=== PATIENT | female | born 1950 | race Caucasian/White ===

== ENCOUNTER 2016-11-02 15:25 | Inpatient (IN) | payer MEDICARE, OTHER ==
[~2016-11-02] VITALS: Ht 162.6 cm; Wt 84.5 kg
[2016-11-02] MEDS ORDERED: ASPIRIN 81 MG TABLET CHEW PO ONE (16:00)
[2016-11-02] MEDS ORDERED: SODIUM CHLORIDE FLUSH 10ML SYR IVF ONE (16:00)
[2016-11-02] MEDS ORDERED: SODIUM CHLORIDE 0.9% 1,000ML IVBOLUS ONE (16:00)
[2016-11-02 16:10] LABS: HEMATOCRIT 32.3 % (34.6-47.8); HEMOGLOBIN 10.4 g/dL (11.7-16.4)
[2016-11-02 16:22] LABS: BLOOD UREA NITROGEN 21 mg/dL (7-18)
[2016-11-02 16:28] LABS: IS PT STATUS REG ER OR PRE ER? YES
[2016-11-02] MEDS ORDERED: GABA300C10 PO (17:35)
[2016-11-02] MEDS ORDERED: ESTR0.3T PO (17:35)
[2016-11-02] MEDS ORDERED: LEVO125T5 PO (17:35)
[2016-11-02] MEDS ORDERED: ASCO10004 PO (17:35)
[2016-11-02] MEDS ORDERED: [UNRECOGNIZED DRUG - CODE] IM (17:35)
[2016-11-02] MEDS ORDERED: VITA2500 PO (17:35)
[2016-11-02] MEDS ORDERED: HYDR-3343 PO (17:35)
[2016-11-02] MEDS ORDERED: PANT40TA3 PO (17:35)
[2016-11-02] MEDS ORDERED: GLIM1TAB2 PO (17:35)
[2016-11-02] MEDS ORDERED: OMNIPAQUE 350 MG/ML, 100ML BOTTLE ONE (18:23)
[2016-11-02] MEDS ORDERED: BISACODYL 10 MG SUPP PR PRN (19:00)
[2016-11-02] MEDS ORDERED: POLYETHYLENE GLYCOL 17 GM PACKET PO PRN (19:00)
[2016-11-02] MEDS ORDERED: DOCUSATE 100 MG CAPSULE PO PRN (19:00)
[2016-11-02] MEDS ORDERED: GUAIFENESIN/DM 200-20MG, 10ML UDC PO PRN (19:00)
[2016-11-02] MEDS ORDERED: DEXTROSE 4 GM TAB.CHEW PO PRN (19:00)
[2016-11-02] MEDS ORDERED: DEXTROSE 50%, 50ML SYRINGE IVPush PRN (19:00)
[2016-11-02] MEDS ORDERED: GLUCAGON 1 MG IM PRN (19:00)
[2016-11-02] MEDS ORDERED: ENALAPRILAT 1.25 MG/ML, 2ML IVPush PRN (19:00)
[2016-11-02] MEDS ORDERED: ACETAMINOPHEN 325 MG TABLET PO PRN (19:00)
[2016-11-02] MEDS ORDERED: ZOLPIDEM 5MG TABLET PO PRN (19:00)
[2016-11-02] MEDS: INSULIN ASPART 100 UNITS/ML, PEN SQ-INSULIN SCH (19:00)
[2016-11-02] MEDS ORDERED: ONDANSETRON 2MG/ML, 2ML IVPush PRN (19:00)
[2016-11-02] MEDS: CEFTRIAXONE PMX 1GM/50ML 50 ML IV SCH (20:15)
[2016-11-02] MEDS ORDERED: CEFTRIAXONE PMX 1GM/50ML 50 ML ONE (20:15)
[2016-11-02 21:23] VITALS: BP 166/62
[2016-11-02] MEDS: methylPREDNISolone SOD SUCC 40 MG/ML IV SCH (22:56)
[2016-11-02] MEDS: DOXYCYCLINE 100 MG in DEXTROSE 5% 250 ML IV SCH (22:56)
[2016-11-02] MEDS: SODIUM CHLORIDE 0.9% 1,000 ML IV SCH (22:56)
[2016-11-02] MEDS: BENZONATATE 100 MG CAPSULE PO SCH (22:57)
[2016-11-02] MEDS: GUAIFENESIN ER 600 MG TABLET PO SCH (22:57)
[2016-11-02] MEDS: SODIUM CHLORIDE FLUSH 10ML SYR IVF SCH (22:57)
[2016-11-02] MEDS: ENOXAPARIN 40 MG/0.4 ML SQ SCH (22:58)
[2016-11-02] MEDS ORDERED: ALBUTEROL SULFATE 2.5 MG/3 ML NPPB PRN (23:00)
[2016-11-03 01:00] VITALS: BP 111/52
[2016-11-03 01:31] VITALS: BP 111/52
[2016-11-03 03:27] LABS: POTASSIUM,URINE RANDOM 2 mmol/L
[2016-11-03 05:49] LABS: HEMATOCRIT 30.5 % (34.6-47.8); HEMOGLOBIN 9.9 g/dL (11.7-16.4); WHITE BLOOD COUNT 9.1 x10^3/uL (3.4-10)
[2016-11-03 06:01] LABS: BLOOD UREA NITROGEN 17 mg/dL (7-18)
[2016-11-03 06:05] LABS: ASPARTATE AMINO TRANSFERASE 13 U/L (15-37)
[2016-11-03 06:35] VITALS: BP 138/72
[2016-11-03 06:47] LABS: DIFF TOTAL CELLS COUNTED 100 CELL DIFF
[2016-11-03 07:12] LABS: VERIFY COUNTS? YES
[2016-11-03] MEDS: CEFTRIAXONE PMX 1GM/50ML 50 ML IV SCH ×2 (08:30→21:12)
[2016-11-03] MEDS: methylPREDNISolone SOD SUCC 40 MG/ML IV SCH (08:30)
[2016-11-03] MEDS: ESTROGEN CONJUGATED 0.3 MG TABLET PO SCH (08:32)
[2016-11-03] MEDS: GUAIFENESIN ER 600 MG TABLET PO SCH ×2 (08:32→21:13)
[2016-11-03] MEDS: ASCORBIC ACID 500 MG TABLET PO SCH (08:32)
[2016-11-03] MEDS: BENZONATATE 100 MG CAPSULE PO SCH ×3 (08:32→21:13)
[2016-11-03] MEDS: PANTOPROZOLE 40MG TABLET PO SCH (08:32)
[2016-11-03] MEDS: SODIUM CHLORIDE 0.9% 1,000 ML IV SCH ×2 (10:58→21:14)
[2016-11-03] MEDS: SODIUM CHLORIDE FLUSH 10ML SYR IVF SCH ×2 (10:58→21:12)
[2016-11-03] MEDS: GABAPENTIN 300 MG CAPSULE PO SCH (10:59)
[2016-11-03] MEDS: LEVOTHYROXINE 125 MCG TABLET PO SCH (10:59)
[2016-11-03] MEDS: INSULIN ASPART 100 UNITS/ML, PEN SQ-INSULIN SCH ×2 (11:03→17:09)
[2016-11-03] MEDS: DOXYCYCLINE 100 MG in DEXTROSE 5% 250 ML IV SCH ×2 (11:05→23:10)
[2016-11-03 13:40] VITALS: BP 125/74
[2016-11-03 18:44] VITALS: BP 117/67
[2016-11-03] MEDS: GLIMEPIRIDE 1 MG TABLET PO SCH (21:12)
[2016-11-03] MEDS: ENOXAPARIN 40 MG/0.4 ML SQ SCH (23:11)
[2016-11-04 02:39] VITALS: BP 128/51
[2016-11-04 05:11] LABS: HEMATOCRIT 28.6 % (34.6-47.8); HEMOGLOBIN 9.1 g/dL (11.7-16.4); WHITE BLOOD COUNT 15.9 x10^3/uL (3.4-10)
[2016-11-04 05:26] LABS: ASPARTATE AMINO TRANSFERASE 15 U/L (15-37); BLOOD UREA NITROGEN 20 mg/dL (7-18)
[2016-11-04 06:45] VITALS: BP 131/70
[2016-11-04] MEDS: SODIUM CHLORIDE 0.9% 1,000 ML IV SCH (08:55)
[2016-11-04] MEDS: INSULIN ASPART 100 UNITS/ML, PEN SQ-INSULIN SCH (08:55)
[2016-11-04] MEDS: ASCORBIC ACID 500 MG TABLET PO SCH (08:56)
[2016-11-04] MEDS: GUAIFENESIN ER 600 MG TABLET PO SCH (08:56)
[2016-11-04] MEDS: PANTOPROZOLE 40MG TABLET PO SCH (08:57)
[2016-11-04] MEDS: GLIMEPIRIDE 1 MG TABLET PO SCH (08:57)
[2016-11-04] MEDS: BENZONATATE 100 MG CAPSULE PO SCH (08:57)
[2016-11-04] MEDS: ESTROGEN CONJUGATED 0.3 MG TABLET PO SCH (08:57)
[2016-11-04] MEDS: SODIUM CHLORIDE FLUSH 10ML SYR IVF SCH (08:58)
[2016-11-04] MEDS: GABAPENTIN 300 MG CAPSULE PO SCH ×2 (08:58→09:00)
[2016-11-04] MEDS: LEVOTHYROXINE 125 MCG TABLET PO SCH (08:59)
[2016-11-04] MEDS ORDERED: VITAMIN A 10,000 UNIT CAPSULE PO SCH (09:00)
[2016-11-04] MEDS ORDERED: methylPREDNISolone SOD SUCC 40 MG/ML IV SCH (09:00)
[2016-11-04] MEDS: CEFTRIAXONE PMX 1GM/50ML 50 ML IV SCH (09:00)
[2016-11-04] MEDS: DOXYCYCLINE 100 MG in DEXTROSE 5% 250 ML IV SCH (11:00)
[2016-11-04] MEDS ORDERED: MAGNESIUM SULFATE PMX 4GM/100M 100 ML IV ONE (11:00)
[2016-11-04 13:19] VITALS: BP 137/71
[2016-11-04] MEDS ORDERED: DOXY100T PO (14:40)
== END 2016-11-04 15:23 | disposition home or self-care (01) | DRG 682 ==
LOC: ED 17:10 → EDIP 19:00 → 3NE 22:07
DX: N17.9 Acute kidney failure, unspecified (principal); E43 Unspecified severe protein-calorie malnutrition; E87.2 Acidosis; I31.3 Pericardial effusion (noninflammatory); I50.30 Unspecified diastolic (congestive) heart failure; I13.0 Hypertensive heart and chronic kidney disease with heart failure and stage 1 through stage 4 chronic kidney disease, or unspecified chronic kidney disease; E83.42 Hypomagnesemia; E44.0 Moderate protein-calorie malnutrition; E87.1 Hypo-osmolality and hyponatremia; J20.9 Acute bronchitis, unspecified; D63.8 Anemia in other chronic diseases classified elsewhere; D72.829 Elevated white blood cell count, unspecified; E03.9 Hypothyroidism, unspecified; E11.22 Type 2 diabetes mellitus with diabetic chronic kidney disease; E11.42 Type 2 diabetes mellitus with diabetic polyneuropathy; E11.65 Type 2 diabetes mellitus with hyperglycemia; J98.01 Acute bronchospasm; I35.0 Nonrheumatic aortic (valve) stenosis; N18.3 Chronic kidney disease, stage 3 (moderate); Z23 Encounter for immunization; Z68.32 Body mass index [BMI] 32.0-32.9, adult; Z79.890 Hormone replacement therapy; Z85.820 Personal history of malignant melanoma of skin; Z87.891 Personal history of nicotine dependence; Z98.84 Bariatric surgery status; Z90.49 Acquired absence of other specified parts of digestive tract; Z90.710 Acquired absence of both cervix and uterus; Z90.722 Acquired absence of ovaries, bilateral
CPT/HCPCS: 36415; 71020; 71275; 80048; 80053; 81003; 82040; 82436; 82962; 83036; 83735; 83930; 83935; 84100; 84133; 84300; 84484; 85025; 85379; 87040; 87070; 87205; 93005; 93306; 94640; 96360; 96361; J0696; J1650; J1815; J7060; Q9967; J2920; J7030